=== PATIENT | female | born 1980 | race African-American/Black ===

== ENCOUNTER 2017-04-28 15:29 | Emergency (ER) | payer MEDICAID ==
[~2017-04-28 15:29] MED LIST: FERR1TAB25 PO; PREN-142 PO
== END 2017-04-28 18:11 | disposition left against medical advice (07) ==
LOC: ER 18:05
DX: N93.9 Abnormal uterine and vaginal bleeding, unspecified (principal); Z53.21 Procedure and treatment not carried out due to patient leaving prior to being seen by health care provider